=== PATIENT | male | born 1965 | race American Indian/Alaskan Native ===

== ENCOUNTER 2019-01-26 22:30 | Emergency (ER) | payer MEDICAID ==
[2019-01-26 22:59] VITALS: RESP 16; O2SAT 100
[2019-01-27] MEDS ORDERED: Bacitracin 500 Units/gm Oint Foilpak UD ONE (02:35)
--- NOTE | 2019-01-27 02:36 | ED PDOC ---
HPI: Head Injury Time Seen by Provider: 01/27/19 02:15 Chief Complaint (Nursing): Wound Check Chief Complaint (Provider): head injury Injury Occurred (Timing): Days Ago: (1) Patient States: Fell Striking Head Additional Complaint(s): 53 y/o male presents for evaluation of head injury sustained yesterday. Patient states he tripped stepping off the curb and scraped scalp on side walk. Denies LOC, headache, dizziness, extremity numbness/weakness. Patient admits to drinking at the time of fall and today; states he "takes a shot here and there" Patient also complaining of bilateral lower extremity swelling; states after being released from senior care he is homeless and has been doing excessive walking. Patient requesting a place to rest his legs for the night. Denies chest pain, shortness of breath, palpitations, calf pain. Past Medical History Reviewed: Historical Data, Nursing Documentation, Vital Signs Vital Signs: Last Vital Signs Temp 98.4 F 01/26/19 22:55 Pulse 94 H 01/26/19 22:55 Resp 16 01/26/19 22:55 BP 125/74 01/26/19 22:55 Pulse Ox 100 01/26/19 22:55 - Medical History PMH: No Chronic Diseases Denies: Chronic Kidney Disease - Surgical History Surgical History: No Surg Hx - Family History Family History: States: Unknown Family Hx - Living Arrangements Living Arrangements: Alone - Social History Current smoker - smoking cessation education provided: Yes Alcohol: Occasional Drugs: Opiates - Immunization History Hx Tetanus Toxoid Vaccination: No Hx Influenza Vaccination: No Hx Pneumococcal Vaccination: No - Home Medications Home Medications: Ambulatory Orders Medication Instructions Recorded Cyclobenzaprine [Flexeril] 10 mg PO TID #15 tab 01/23/19 Ibuprofen [Motrin Tab] 800 mg PO TID PRN #21 tab 01/23/19 Bacitracin Ointment [Bacitracin] 1 applic TOP BID #1 tube 01/27/19 - Allergies Allergies/Adverse Reactions: Allergies Allergy/AdvReac Type Severity Reaction Status Date / Time No Known Allergies Allergy Verified 01/26/19 22:54 Review of Systems ROS Statement: Except As Marked, All Systems Reviewed And Found Negative Neurological: Positive for: Headache Physical Exam - Reviewed Nursing Documentation Reviewed: Yes Vital Signs Reviewed: Yes - Physical Exam Appears: Positive for: Well, Non-toxic, No Acute Distress Head Exam: Positive for: NORMAL INSPECTION, NORMOCEPHALIC. Negative for: ATRAUMATIC (scabbed abrasion frontal/parietal scalp; no erythema, drainage, tenderness, swelling noted) Skin: Positive for: Normal Color Eye Exam: Positive for: Normal appearance ENT: Positive for: Normal ENT Inspection Cardiovascular/Chest: Positive for: Regular Rate, Rhythm Gastrointestinal/Abdominal: Positive for: Normal Exam Extremity: Positive for: Normal ROM, Swelling (bilateral lower extremities). Negative for: Calf Tenderness Neurological/Psych: Positive for: Awake, Alert, Oriented (x3) - ECG O2 Sat by Pulse Oximetry: 100 - Progress ED Course And Treament: -CT head - abrasion cleaned with NS, bacitracin applied, bandage applied CT SCAN OF THE BRAIN WITHOUT IV CONTRAST CLINICAL INDICATION: Head injury. TECHNIQUE: Axial and reformatted sagittal and coronal images of the brain obtained without IV contrast administration. Normal size of the ventricles and extra-axial spaces for the patient's age. Normal white matter tracts of the supratentorial brain. Normal basal ganglia and thalami. Normal brainstem. Normal cerebellum. There is no demonstrated extra-axial, intraparenchymal, or intraventricular hemorrhage. There are no findings of an acute ischemic infarction. Normal calvarium. There is no demonstrated fracture. Normal soft tissue structures. Normal visualized paranasal sinuses. IMPRESSION: Normal unenhanced CT scan of the brain Patient educated on findings, discharged with rx Bacitracin Advised elevating legs at rest Return precautions given Disposition - Clinical Impression Clinical Impression: Scalp abrasion, Head injury, Leg swelling - Patient ED Disposition Is Patient to be Admitted: No Counseled Patient/Family Regarding: Studies Performed, Diagnosis, Need For Followup, Rx Given - Disposition Referrals: [facility] [place] [Outside] Disposition: Routine/Home Disposition Time: 04:38 Condition: STABLE Prescriptions: Bacitracin Ointment [Bacitracin] 1 applic TOP BID #1 tube Instructions: Minor Head Injury, Skin Abrasions (DC), Dependent Edema (DC)
[2019-01-27 06:56] VITALS: BP 122/73; PULSE 84; TEMP 98.2
--- NOTE | 2019-01-27 09:01 | CT ---
Date of service: 01/27/2019 PROCEDURE: CT HEAD WITHOUT CONTRAST. HISTORY: head injury COMPARISON: None available. TECHNIQUE: Axial computed tomography images were obtained through the head/brain without intravenous contrast. Radiation dose: Total exam DLP = 953.79 mGy-cm. This CT exam was performed using one or more of the following dose reduction techniques: Automated exposure control, adjustment of the mA and/or kV according to patient size, and/or use of iterative reconstruction technique. FINDINGS: HEMORRHAGE: No intracranial hemorrhage. BRAIN: Normal swann-white matter differentiation and density are appreciated throughout the cerebrum and cerebellum with the brainstem appearing unremarkable as well. There is no mass effect. There is no suspicious extra-axial fluid collection and the midline brain anatomy appears diffusely unremarkable. VENTRICLES: Unremarkable. No hydrocephalus. CALVARIUM: No destructive bony lesion or displaced fracture identified including through the skullbase. PARANASAL SINUSES: Unremarkable as visualized. No significant inflammatory changes. MASTOID AIR CELLS: Unremarkable as visualized. No inflammatory changes. OTHER FINDINGS: None. IMPRESSION: Unremarkable unenhanced head CT. Concordant preliminary report from [facility], 01/27/2019, 04:25 a.m..
== END 2019-01-27 06:54 | disposition home or self-care (01) ==
LOC: H.ER 22:30
DX: S00.01XA Abrasion of scalp, initial encounter (principal); W19.XXXA Unspecified fall, initial encounter; Y92.480 Sidewalk as the place of occurrence of the external cause; Z59.0 Homelessness

== ENCOUNTER 2019-01-29 19:54 | Emergency (ER) | payer MEDICAID ==
[2019-01-29] MEDS ORDERED: Albuterol-Ipratrop 3 mg / 0.5 (3 ml) UD IH STA ×2 (21:38→21:39)
--- NOTE | 2019-01-29 21:51 | ED PDOC ---
HPI: CCC, URI, Sore Throat Time Seen by Provider: 01/29/19 21:18 Chief Complaint (Nursing): Chest Pain Chief Complaint (Provider): chest pain History Per: Patient History/Exam Limitations: no limitations Onset/Duration Of Symptoms: Days (1) Current Symptoms Are (Timing): Still Present Associated Symptoms: Fever, Chills, Cough, Sputum Additional Complaint(s): 53 y/o male presents for evaluation of chest pain x 1 day. Patient describes pain as "tightness". Patient reports cough productive of brown sputum, and subjective fever. Denies headache, nasal congestion, ear pain, throat pain, shortness of breath, palpitations, vomiting/diarrhea, leg pain/swelling, recent travel, sick contacts. Past Medical History Reviewed: Historical Data, Nursing Documentation, Vital Signs Vital Signs: Last Vital Signs Temp 100 F H 01/29/19 20:03 Pulse 92 H 01/29/19 20:03 Resp 20 01/29/19 20:03 BP 140/74 01/29/19 20:03 Pulse Ox 98 01/29/19 20:03 - Medical History PMH: Back Problems Denies: Chronic Kidney Disease - Surgical History Surgical History: No Surg Hx - Family History Family History: States: Unknown Family Hx - Social History Current smoker - smoking cessation education provided: Yes - Immunization History Hx Tetanus Toxoid Vaccination: No Hx Influenza Vaccination: Yes Hx Pneumococcal Vaccination: No - Home Medications Home Medications: Ambulatory Orders Medication Instructions Recorded Cyclobenzaprine [Flexeril] 10 mg PO TID #15 tab 01/23/19 Ibuprofen [Motrin Tab] 800 mg PO TID PRN #21 tab 01/23/19 Albuterol HFA [Ventolin HFA 90 1 puff IH Q4 PRN #1 inh 01/30/19 mcg/actuation (8 g)] Azithromycin [Zithromax] 250 mg PO DAILY #1 packet 01/30/19 Ibuprofen [Motrin Tab] 1 tab PO Q6 PRN #15 tab 01/30/19 predniSONE [Prednisone] 60 mg PO DAILY #12 tab 01/30/19 - Allergies Allergies/Adverse Reactions: Allergies Allergy/AdvReac Type Severity Reaction Status Date / Time No Known Allergies Allergy Verified 01/27/19 23:06 Review of Systems ROS Statement: Except As Marked, All Systems Reviewed And Found Negative Constitutional: Positive for: Fever, Chills Cardiovascular: Positive for: Chest Pain Respiratory: Positive for: Cough Physical Exam - Reviewed Nursing Documentation Reviewed: Yes Vital Signs Reviewed: Yes - Physical Exam Appears: Positive for: Well, Non-toxic, No Acute Distress Head Exam: Positive for: ATRAUMATIC, NORMAL INSPECTION, NORMOCEPHALIC Skin: Positive for: Normal Color Eye Exam: Positive for: Normal appearance ENT: Positive for: Normal ENT Inspection Cardiovascular/Chest: Positive for: Regular Rate, Rhythm Respiratory: Positive for: Rhonchi, Wheezing Gastrointestinal/Abdominal: Positive for: Normal Exam Back: Positive for: Normal Inspection Extremity: Positive for: Normal ROM Neurological/Psych: Positive for: Awake, Alert, Oriented (x3) - Laboratory Results Result Diagrams: 01/29/19 22:56 01/29/19 22:56 - ECG ECG: Positive for: Viewed By Me (reviewed by ED attending) ECG Rhythm: Positive for: Sinus Rhythm O2 Sat by Pulse Oximetry: 98 - Radiology X-Ray: Viewed By Me X-Ray Interpretation: No Acute Disease - Progress ED Course And Treament: -cbc -cmp -troponin -lactic acid -blood cultures -influenza -cxr -ekg -duonebs -IV solumedrol -PO tylenol On re-eval, patient states he is feeling better. Lung sounds improved Patient educated on findings, discharged with rx Prednisone, Albuterol HFA, ibuprofen, zpak Advised follow up PMD within 2-3 days Return precautions given Disposition - Clinical Impression Clinical Impression: Bronchitis - Patient ED Disposition Is Patient to be Admitted: No Counseled Patient/Family Regarding: Studies Performed, Diagnosis, Need For Followup, Rx Given - Disposition Referrals: [facility] [Outside] Disposition: Routine/Home Disposition Time: 01:26 Condition: IMPROVED Prescriptions: Albuterol HFA [Ventolin HFA 90 mcg/actuation (8 g)] 1 puff IH Q4 PRN #1 inh PRN Reason: Wheezing Azithromycin [Zithromax] 250 mg PO DAILY #1 packet Ibuprofen [Motrin Tab] 1 tab PO Q6 PRN #15 tab PRN Reason: Pain, Moderate (4-7) predniSONE [Prednisone] 60 mg PO DAILY #12 tab Instructions: Acute Bronchitis
[2019-01-29] MEDS ORDERED: Albuterol-Ipratrop 3 mg / 0.5 (3 ml) UD ONE (22:32)
[2019-01-29 23:01] LABS: BASO % 0.7 % (0.0-2.0); EOS # 0.1 K/uL (0.0-0.7); EOS % 1.8 % (0.0-4.0); HEMOGLOBIN 13.4 g/dL (12.0-18.0); LYMPH # 0.8 K/uL (1.0-4.3); LYMPH % 22.6 % (20.0-40.0); MEAN CELL VOLUME 88.3 fl (80.0-94.0); MEAN CORPUSCULAR HEMOGLOBIN 29.5 pg (27.0-31.0); MEAN CORPUSCULAR HGB CONC 33.4 g/dL (33.0-37.0); MONO # 0.5 K/uL (0.0-0.8); MONO % 15.6 % (0.0-10.0); NEUT % 59.3 % (50.0-75.0); NRBC % 0.2 % (0.0-0.0); RBC 4.54 Mil/uL (4.40-5.90); RED CELL DISTRIBUTION WIDTH 14.9 % (11.5-14.5); WHITE BLOOD COUNT 3.3 K/uL (4.8-10.8)
[2019-01-29 23:15] LABS: ALB/GLOB RATIO 1.1 (1.0-2.1); ALBUMIN 3.6 g/dL (3.5-5.0); ALT/SGPT 31 U/L (21-72); AST/SGOT 41 U/L (17-59); BLOOD UREA NITROGEN 14 mg/dl (9-20); CALCIUM 8.7 mg/dL (8.4-10.2); GFR NON-AFRICAN AMERICAN > 60
[2019-01-30 00:42] VITALS: TEMP 98.5
[2019-01-30 02:55] VITALS: BP 150/87; PULSE 80; RESP 17; O2SAT 97
--- NOTE | 2019-01-30 08:34 | RAD ---
Date of service: 01/29/2019 HISTORY: cough, chest pain, fever COMPARISON: No prior. TECHNIQUE: Chest PA and lateral views FINDINGS: LUNGS: No active pulmonary disease. PLEURA: No significant pleural effusion identified. No pneumothorax apparent. CARDIOVASCULAR: No aortic atherosclerotic calcification present. Normal cardiac size. No pulmonary vascular congestion. OSSEOUS STRUCTURES: No significant abnormalities. VISUALIZED UPPER ABDOMEN: Normal. OTHER FINDINGS: None. IMPRESSION: No acute cardiopulmonary disease appreciated.
== END 2019-01-30 02:53 | disposition home or self-care (01) ==
LOC: H.ER 19:54
DX: J40 Bronchitis, not specified as acute or chronic (principal)
CPT/HCPCS: 71046; 80053; 83605; 84484; 85025; 87040; 87804; 94640; 96374; 99284; J2930